=== PATIENT | female | born 1985 ===

== ENCOUNTER 2018-10-26 18:47 | Emergency (ER) | payer MEDICAID ==
[2018-10-26 18:54] VITALS: RESP 18
[2018-10-26] MEDS ORDERED: Tetanus/Diphtheria Toxoids 0.5 ml Syringe IM ONE ×2 (18:55→19:58)
[2018-10-26 19:32] LABS: BASO # 0.1 K/uL (0.0-0.2); BASO % 0.6 % (0.0-2.0); EOS # 0.1 K/uL (0.0-0.7); EOS % 0.9 % (0.0-4.0); HEMOGLOBIN 11.7 g/dL (11.0-16.0); LYMPH # 3.5 K/uL (1.0-4.3); LYMPH % 29.5 % (20.0-40.0); MEAN CELL VOLUME 76.9 fL (81.0-99.0); MEAN CORPUSCULAR HGB CONC 31.2 g/dL (33.0-37.0); MEAN PLATELET VOLUME 8.6 fL (7.2-11.7); MONO # 1.4 K/uL (0.0-0.8); NEUT # 6.8 K/uL (1.8-7.0); RBC 4.88 Mil/uL (3.80-5.20); RED CELL DISTRIBUTION WIDTH 16.5 % (11.5-14.5)
[2018-10-26 19:46] LABS: ALB/GLOB RATIO 1.6 (1.0-2.1); ALBUMIN 4.7 g/dL (3.5-5.0); AST/SGOT 25 U/L (14-36); BLOOD UREA NITROGEN 15 mg/dL (7-17); CALCIUM 9.7 mg/dl (8.6-10.4); GFR NON-AFRICAN AMERICAN > 60; INR 1.1; PROTHROMBIN TIME 12.2 SECONDS (9.7-12.2)
[2018-10-26 19:50] LABS: ALT/SGPT < 6 U/L (9-52)
[2018-10-26 20:26] LABS: BARBITURATES, UR NEGATIVE (NEGATIVE); BENZODIAZEPINES, UR NEGATIVE (NEGATIVE); OPIATES, UR NEGATIVE (NEGATIVE); PHENCYCLIDINE, UR NEGATIVE (NEGATIVE)
[2018-10-26 20:29] LABS: SQUAMOUS EPITHIAL < 1 /hpf (0-5); URINE BACTERIA RARE (<OCC)
[2018-10-26 20:33] LABS: PH,URINE 7.5 (5.0-8.0); URINE BILIRUBIN NEGATIVE (NEGATIVE); URINE BLOOD NEGATIVE (NEGATIVE); URINE CLARITY CLEAR (Clear); URINE COLOR YELLOW (YELLOW); URINE GLUCOSE (UA) NEGATIVE (Normal); URINE LEUKOCYTE ESTERASE NEGATIVE Leu/uL (Negative); URINE PROTEIN NEGATIVE (NEGATIVE); URINE UROBILINOGEN 0.2 mg/dL (0.2-1.0)
[2018-10-26 20:56] VITALS: O2SAT 100
[2018-10-26] MEDS ORDERED: Iohexol 300 50 ML ONE (20:58)
[2018-10-26] MEDS ORDERED: Iohexol 300 100 ML IJ ONE (21:00)
[2018-10-26] MEDS ORDERED: Lidocaine 1%/Epinephrine 1:100000 30 ml vial IJ ONE (21:01)
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
[2018-10-26] MEDS ORDERED: Bacitracin Ointment 30 GM TUBE TOP ONE (22:13)
[2018-10-26 22:17] VITALS: BP 106/72; PULSE 77; TEMP 98.2
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
--- NOTE | 2018-10-27 08:35 | CT ---
Date of service: 10/26/2018 PROCEDURE: CT MAXILLOFACIAL BONES WITHOUT CONTRAST HISTORY: r/o fx COMPARISON: None available. TECHNIQUE: Contiguous axial CT images of the maxillofacial bones were obtained. Coronal and sagittal reformats were generated. Radiation dose: Total exam DLP = 644.76 mGy-cm. This CT exam was performed using one or more of the following dose reduction techniques: Automated exposure control, adjustment of the mA and/or kV according to patient size, and/or use of iterative reconstruction technique. FINDINGS: NASAL BONES: The nasal bones are intact. ORBITS: No acute orbital fracture or acute orbital injury. The globes are symmetric. PARANASAL SINUSES/ MASTOIDS: Predominantly clear. MAXILLA: No acute maxillofacial fracture. MANDIBLE/ TEMPOROMANDIBULAR JOINTS: Unremarkable. SKULL BASE: Unremarkable. TEMPORAL BONES: Middle ears and mastoid grossly unremarkable. OTHER FINDINGS: None. IMPRESSION: No acute nasal bone, orbital or maxillofacial fracture. A preliminary report was provided by [employer]
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
--- NOTE | 2018-10-27 09:50 | RAD ---
Right elbow three views HISTORY: Injury. COMPARISON: None available. FINDINGS: No evidence of acute displaced fracture or dislocation. No significant elbow joint effusion. Impression: Negative acute. If pain persists, consider MRI.
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
== END 2018-10-26 22:26 | disposition home or self-care (01) ==
LOC: C.ER 18:47
DX: S01.81XA Laceration without foreign body of other part of head, initial encounter (principal); V86.55XA Driver of 3- or 4- wheeled all-terrain vehicle (ATV) injured in nontraffic accident, initial encounter
CPT/HCPCS: 12013; 70450; 70480; 71260; 72125; 73080; 73610; 74177; 80053; 80320; 80324; 80345; 80346; 80349; 80353; 80358; 80361; 81001; 81025; 83992; 85025; 85610; 85730; 96374; 99285; J1885; Q9967